=== PATIENT | female | born 1985 | race Caucasian/White ===

== ENCOUNTER 2019-05-01 21:40 | Inpatient (IN) | payer OTHER ==
[~2019-05-01] VITALS: Ht 172.7 cm; Wt 79.1 kg
[~2019-05-01 21:40] MED LIST: IBUP800 PO; PNV-OB WITH DH1 EACH PO
[2019-05-01] MEDS ORDERED: MICO100S VAG (22:15)
[2019-05-01 22:52] LABS: BASOPHILS ABSOLUTE AUTO 0.02 K/mm3 (0.00-0.23); BASOPHILS PERCENT AUTO 0 % (0-2); EOSINOPHILS ABSOLUTE AUTO 0.13 K/mm3 (0.00-0.68); EOSINOPHILS PERCENT AUTO 2 % (0-6); Hematocrit 37.3 % (33.0-51.0); Hemoglobin 12.8 g/dL (11.5-16.0); IMMATURE GRAN ABSOLUTE AUTO 0.05 K/mm3 (0.00-0.10); IMMATURE GRAN PERCENT AUTO 1 % (0-1); LYMPHOCYTES ABSOLUTE AUTO 2.41 K/mm3 (0.84-5.20); LYMPHOCYTES PERCENT AUTO 29 % (21-46); MONOCYTES ABSOLUTE AUTO 0.75 K/mm3 (0.16-1.47); MONOCYTES PERCENT AUTO 9 % (4-13); Mean Corpuscular HGB Conc 34.3 g/dL (31.5-36.5); Mean Corpuscular Volume 87 fL (80-100); NEUTROPHILS ABSOLUTE AUTO 5.11 K/mm3 (1.96-9.15); NEUTROPHILS PERCENT AUTO 60 % (41-73); RDW Coefficient Variation 12.9 % (11.7-14.2); RDW Standard Deviation 41.1 fL (35.1-46.3); Red Blood Cell Count 4.27 M/mm3 (3.80-5.20); White Blood Cell Count 8.47 K/mm3 (4.00-11.30)
[2019-05-01 22:54] LABS: Mean Platelet Volume 13.6 fL (9.1-12.4); Platelet Count 114 K/mm3 (150-400)
--- NOTE | 2019-05-02 16:45 | NUR ---
report to kimi AUGUSTIN
[2019-05-03 05:53] LABS: BASOPHILS ABSOLUTE AUTO 0.04 K/mm3 (0.00-0.23); BASOPHILS PERCENT AUTO 0 % (0-2); EOSINOPHILS ABSOLUTE AUTO 0.16 K/mm3 (0.00-0.68); EOSINOPHILS PERCENT AUTO 2 % (0-6); Hematocrit 38.7 % (33.0-51.0); IMMATURE GRAN ABSOLUTE AUTO 0.04 K/mm3 (0.00-0.10); IMMATURE GRAN PERCENT AUTO 0 % (0-1); LYMPHOCYTES ABSOLUTE AUTO 2.94 K/mm3 (0.84-5.20); LYMPHOCYTES PERCENT AUTO 31 % (21-46); MONOCYTES ABSOLUTE AUTO 0.69 K/mm3 (0.16-1.47); MONOCYTES PERCENT AUTO 7 % (4-13); Mean Corpuscular HGB Conc 33.6 g/dL (31.5-36.5); Mean Corpuscular Volume 89 fL (80-100); Mean Platelet Volume 12.7 fL (9.1-12.4); NEUTROPHILS ABSOLUTE AUTO 5.73 K/mm3 (1.96-9.15); NEUTROPHILS PERCENT AUTO 60 % (41-73); Platelet Count 113 K/mm3 (150-400); RDW Coefficient Variation 13.1 % (11.7-14.2); RDW Standard Deviation 42.7 fL (35.1-46.3); Red Blood Cell Count 4.33 M/mm3 (3.80-5.20)
--- NOTE | 2019-05-03 11:23 | NUR ---
MOM STATES NIPPLES ARE VERY PAINFUL DUE TO [place] TOUNGE TIE AND WOULD LIKE TO TALK TO PEDIATRITION ABOUT HAVING IT CLIPPED WHILE STILL HERE IN HOSPITAL
--- NOTE | 2019-05-03 17:58 | NUR ---
ASSIST BABY SLEEPING, MOM UNABLE TO WAKE HIM FOR FEEDING AT THIS TIME BABY DID HAVE A TOUNGE TIE CLIP TODAY DISCUSSED TOUNGE EXERCISES FOLLOWING CLIP , IA WAS UNABLE TO FIND INFO PRIOR TO DC. I WILL ATTACH INFORMATION TO [facility] CHART.
== END 2019-05-03 16:20 | disposition home or self-care (01) | DRG 807 ==
LOC: OBS 21:40 → BC 21:54
PROVIDERS: ADMIT Nurse Practitioner Obstetrics & Gynecology
PROC: 10E0XZZ Delivery of Products of Conception, External Approach (ICD-10-PCS; principal; 2019-05-02)
PROC: 6A550ZT Pheresis of Cord Blood Stem Cells, Single (ICD-10-PCS; 2019-05-02)
DX: O80 Encounter for full-term uncomplicated delivery (principal); Z37.0 Single live birth; Z3A.39 39 weeks gestation of pregnancy
CPT/HCPCS: 36415; 85025; 85460; 86850; 86870; 86900; 86901; 96372; J0290; J1885; J2210; J2590; J2790; J3010; J7120

== ENCOUNTER 2025-03-15 08:46 | Day surgery (SDC) | payer OTHER ==
[~2025-03-15] VITALS: Ht 175.3 cm; Wt 69.0 kg
[~2025-03-15 08:46] MED LIST changes: +MICO100S VAG
[2025-03-15] MEDS ORDERED: Lactated Ringer's 1,000 ML IV ONE ×2 (09:52→10:21)
[2025-03-15] MEDS ORDERED: propofoL 50 ML IV ONE (10:20)
[2025-03-15 11:23] VITALS: BP 100/72
== END 2025-03-15 11:25 | disposition home or self-care (01) ==
LOC: ORSCSDS 08:46
PROVIDERS: Internal Medicine Gastroenterology
PROC: 0DBM8ZX Excision of Descending Colon, Via Natural or Artificial Opening Endoscopic, Diagnostic (ICD-10-PCS; principal; 2025-03-15 10:15)
DX: Z12.11 Encounter for screening for malignant neoplasm of colon (principal); Z80.0 Family history of malignant neoplasm of digestive organs; D12.4 Benign neoplasm of descending colon
CPT/HCPCS: 88305; J2704; J7120